=== PATIENT | female | born 1975 | race Asian ===

== ENCOUNTER 2024-07-13 15:08 | Outpatient (AMB) | payer OTHER, SELFPAY ==
--- NOTE | 2024-07-13 15:20 | MHC.OFFVIS ---
Vital Signs 07/13/24 15:24 Height 5 ft 4 in Weight 138 lb 14.259 oz BMI 23.8 BP 137/80 Blood Pressure Location Lt brachial Position Sitting Pulse 80 Intake Visit Reasons: Abdominal pain,GERD(per Eric) Intake Note: Susannah presents in the office as a new patient per Eric for Abdominal pains and GERD. CC: No reflux - she states that she has pains and burning in her abdomen. Pains in the epigastric region. She states that she sometimes has constipation. When she is having constipation sometimes she will have some blood. Wafer Substrate Tester Required: No Allergies No Known Allergies Allergy (Verified 07/13/24 15:25) HPI HPI Abdominal pain,GERD(per Eric): Details: HPI 48 yr old f here for assessment She saw a GI in [place] she had burning and was dx with fatty liver she was tried on famotidine, then omeprazole she had issues with satiety, was prescirbed dynatik , and told to increase omeprazole to 20 mg BID she has gerd and occ dysphagia only to rice never been checked for h pylori constipation with bleeding, sometimes --on and off for 2 years stool is hard and painful, only sometimes other meds: nortriptiline quetiapine tylenol ROS: Constitutional : No Weight loss, No Fever, No Chills ENT/Mouth : No sore throat, No Rhinorrhea Eyes: No Swelling, No Redness Cardiovascular : No Chest Pain, No SOB, No Edema Respiratory : No Cough, No Sputum, No Wheezing Gastrointestinal : see HPI Genitourinary : NO Dysuria, No Urinary Frequency, No Hematuria, No Urgency Musculoskeletal : + joint pain, No Myalgias, No Joint Swelling Skin : No Skin Lesions, No rash Neuro : No Weakness, No Numbness, No Dizziness, No Headache Psych : No Anxiety/Panic, No Depression Heme/Lymph: No Bruising, No Lymphadenopathy Endocrine : No Polyuria, No Polydipsia All other systems reviewed and are negative. Medical History neck pain depression Surgical History Family History gallbladder dz in mother Social History non smoker, no alcohol no drug use EXAM: GENERAL: The patient is well developed and nontoxic. VITAL SIGNS:see workflow HEENT: Nonicteric sclerae, PERRLA, EOMI. Oropharynx clear. Moist mucous membranes. Conjunctivae appear well perfused. No thyroid mass. CHEST: Chest wall is nontender. HEART: Regular rate and rhythm without murmurs. LUNGS: Clear to auscultation bilaterally. ABDOMEN: Soft, positive bowel sounds, nontender, no organomegaly.no flank tenderness SKIN: No rash, no excessive bruising, petechiae, or purpura. NEUROLOGIC: Cranial nerves II-XII intact without motor/sensory deficit. Psych: normal affect A/P: 1/ Epigastric pain, satiety ddx:H pylori GOO, functional dyspepsia --less likely gallstones 2/ rectal bleeding and anemia, ddx: hemorrhoids, rectal lesions, colitis PLAN: 1/ May have h pylori, on omeprazole, going back to [place] and not staying--if H pylori neg shoudl repeat with 2 weeks off PPI 2/ recommended to have colonoscopy will do in [place], check CRP and iron etc meantime Physical Exam Vital Signs: Last Vital Signs Pulse 80 07/13/24 15:24 BP 137/80 07/13/24 15:24 BMI result Body Mass Index 23.8 Assessment & Plan Assessment & Plan (1) Anemia: Code(s): D64.9 - Anemia, unspecified Category: Medical Plan: see above (2) H. pylori infection: Code(s): A04.8 - Other specified bacterial intestinal infections Category: Medical Plan: see above Orders: Orders C Reactive Protein 07/13/24 A04.8 - Other specified bacterial intestinal infections, D64.9 - Anemia, unspecified Ferritin 07/13/24 A04.8 - Other specified bacterial intestinal infections, D64.9 - Anemia, unspecified Transglutaminase IgA 07/13/24 A04.8 - Other specified bacterial intestinal infections, D64.9 - Anemia, unspecified Vitamin B12 and Folate 07/13/24 A04.8 - Other specified bacterial intestinal infections, D64.9 - Anemia, unspecified Transglutaminase Ab IgG 07/13/24 A04.8 - Other specified bacterial intestinal infections, D64.9 - Anemia, unspecified, G89.29 - Other chronic pain, R10.33 - Periumbilical pain H Pylori Breath Test 07/13/24 A04.8 - Other specified bacterial intestinal infections Coding Level of Care Code New Pt Level 4 (45324) Diagnoses Anemia D64.9 H. pylori infection A04.8
[2024-07-13 15:24] VITALS: BP 137/80; PULSE 80; BMI 23.8
== END 2024-07-13 16:35 | disposition home or self-care (01) ==
PROVIDERS: Visit Provider Internal Medicine Gastroenterology
DX: D64.9 Anemia, unspecified (principal); A04.8 Other specified bacterial intestinal infections
CPT/HCPCS: 99204

== ENCOUNTER 2024-07-13 15:08 | Outpatient (REF) | payer OTHER, SELFPAY ==
[2024-07-13 18:13] LABS: C Reactive Protein 1.18 mg/dL (< or = 0.50)
[2024-07-13 18:30] LABS: Ferritin 55 ng/mL (10-250)
[2024-07-13 18:44] LABS: Folate 14.7 ng/mL (> or = 4.0); Vitamin B12 779 pg/mL (200-900)
[2024-07-15 18:34] LABS: Transglutaminase Ab IgG <1.0 U/mL; Transglutaminase IgA <1.0 U/mL
== END 2024-07-13 15:09 | disposition home or self-care (01) ==
LOC: HO.LAB 15:08
PROVIDERS: Visit Provider Internal Medicine Gastroenterology
DX: D64.9 Anemia, unspecified (principal); A04.8 Other specified bacterial intestinal infections; R10.33 Periumbilical pain; G89.29 Other chronic pain
CPT/HCPCS: 36415; 82607; 82728; 82746; 86140; 86364; 99202

== ENCOUNTER 2024-07-14 16:22 | Outpatient (REF) | payer OTHER, SELFPAY ==
[2024-07-15 14:59] LABS: H Pylori Breath Test Negative (Negative)
== END 2024-07-14 16:23 | disposition home or self-care (01) ==
LOC: HO.LNP 16:22
PROVIDERS: Visit Provider Internal Medicine Gastroenterology
DX: A04.8 Other specified bacterial intestinal infections (principal)
CPT/HCPCS: 83013